=== PATIENT | male | born 1960 | race Caucasian/White ===

== ENCOUNTER 2022-06-09 21:16 | Emergency (ER) | payer OTHER ==
[~2022-06-09] VITALS: Ht 185.4 cm; Wt 140.6 kg
[2022-06-09 21:19] VITALS: BP 139/84
== END 2022-06-09 22:39 | disposition home or self-care (01) ==
LOC: ER 21:16
DX: L02.213 Cutaneous abscess of chest wall (principal)
CPT/HCPCS: 10060; 99282-25

== ENCOUNTER 2022-07-10 18:42 | Emergency (ER) | payer OTHER ==
[~2022-07-10] VITALS: Ht 182.9 cm; Wt 136.1 kg
[2022-07-10 18:55] VITALS: BP 141/87
[2022-07-10] MEDS ORDERED: ALLO300 PO (19:14)
[2022-07-10] MEDS ORDERED: LISINOPRIL-HCT1 EACH PO (19:14)
[2022-07-10] MEDS ORDERED: METOPROLOL SUCC25 MG PO (19:14)
[2022-07-10] MEDS ORDERED: NEURONTIN300 MG PO (19:14)
[2022-07-10] MEDS ORDERED: Amoxicillin500 MG PO (19:14)
== END 2022-07-10 20:45 | disposition home or self-care (01) ==
LOC: ER 18:42
DX: S70.02XA Contusion of left hip, initial encounter (principal); W17.89XA Other fall from one level to another, initial encounter; Z79.899 Other long term (current) drug therapy; M25.562 Pain in left knee
CPT/HCPCS: 73502; 73562-LT; 96372; 99284-25; J1885